=== PATIENT | female | born 1935 | race Caucasian/White ===

== ENCOUNTER → 2016-07-23 | Outpatient (CLI) | payer BC, OTHER ==
[~2016-07-23] MED LIST: BIOT1CAP8 PO; CHOL2000 PO; LOSA100T26 PO; MAGN400T6 PO; NAPR1TAB9 PO; OXYC-57 PO; TRAM-10 PO
[2016-07-23 09:43] LABS: BASO % 0.8 %; BASO ABS # 0.05 K/uL (0-0.2); COMPLETE YES; EOS % 3.2 %; HEMATOCRIT 36.5 % (37-47); LYMPH % 29.4 %; LYMPH ABS # 1.93 K/uL (1.2-3.4); MEAN CELL VOLUME 94.3 fL (80-100); MEAN CORPUSCULAR HEMOGLOBIN 32.6 pg (25-34); MEAN CORPUSCULAR HGB CONC 34.5 g/dl (32-36); MEAN PLATELET VOLUME 9.5 fL (7.4-10.4); MONO % 7.8 %; NEUT % 58.8 %; PLATELET COUNT 269 K/uL (130-400); RED BLOOD COUNT 3.87 M/uL (4.2-5.4); WHITE BLOOD COUNT 6.57 K/uL (4.8-10.8)
[2016-07-23 09:54] LABS: ESTIMATED AVERAGE GLUCOSE 108 mg/dl; HA1C FLAG Normal (Normal)
[2016-07-23 09:58] LABS: ALT/SGPT 18 U/L (12-78); BLOOD UREA NITROGEN 28 mg/dl (7-18); BUN/CREATININE RATIO 27.5 (10-20); CALCIUM 9.5 mg/dl (8.5-10.1); CARBON DIOXIDE 27 mmol/L (21-32); CHLORIDE 109 mmol/L (98-107); CHOLESTEROL 229 mg/dl (0-200); GLUCOSE 99 mg/dl (70-99); POTASSIUM 4.1 mmol/L (3.5-5.1); SODIUM 143 mmol/L (136-145); TRIGLYCERIDES 86 mg/dl (0-150); VERY LOW DENSITY LIPOPROT CALC 17 mg/dl
[2016-07-23 10:07] LABS: ALB/GLOB RATIO 1.2 (0.9-2); ALKALINE PHOSPHATASE 69 U/L (45-117); AST/SGOT 15 U/L (15-37); CHOLESTEROL/HDL RATIO 2.8; HDL CHOLESTEROL 83 mg/dl; LDL CHOLESTEROL CALCULATED 129 mg/dl; THYROID STIMULATING HORMONE 0.151 uIu/ml (0.300-4.500)
--- NOTE | 2016-07-28 13:06 | CODING QUERY MEDICAL NECESSITY ---
SUPPORTING DIAGNOSIS NEEDED A supporting diagnosis is required for the test/procedure performed on this patient in order for us to be reimbursed by the patient's insurance. Please provide a supporting diagnosis for the following test/procedure listed below next to the test name along with your signature. *If there is no additional diagnosis for this patient that would support the following test/procedure please document that below next to the test/procedure. Test(s)/Procedure(s) that require a supporting diagnosis: DOS 07/23 * Hba1c DIAGNOSIS: Provider Signature: Date: Thank you Katelyn Velásquez Health Information Management Once completed, please kindly fax back to [phone] For questions please call [phone]
== END | disposition home or self-care (01) ==
LOC: C.LAB 07:58
PROVIDERS: ATTEND Internal Medicine
DX: M41.30 Thoracogenic scoliosis, site unspecified (principal); E05.90 Thyrotoxicosis, unspecified without thyrotoxic crisis or storm; R73.01 Impaired fasting glucose

== ENCOUNTER → 2016-08-14 | Outpatient (CLI) | payer BC, OTHER ==
[~2016-08-14] MED LIST changes: +GADAVIST IV PRN; -LOSA100T26 PO; +LOSA100T33 PO
--- NOTE | 2016-08-15 15:34 | DIAGNOSTIC IMAGING REPORT ---
BRAIN COMBO FOR PITUITARY CLINICAL HISTORY: Abnormal TSH. Secondary hypothyroidism. COMPARISON STUDY: Head CT November 20, 2013. TECHNIQUE: Utilizing 1.5 Carmela magnet, multiplanar, multi echo imaging of the brain was performed pre and postcontrast administration with thin cut dynamic imaging through the pituitary gland. Injection of 4.8 cc of Gadavist IV was uneventful. FINDINGS: There are no areas of restricted diffusion. No acute intracranial hemorrhage, midline shift or mass effect is present. Ventricular system is normal for age. Basilar cisterns are patent. There are no extra-axial collections. Flow-voids for the major intracranial vessels are present. This exam is mildly, must by motion artifact although is diagnostic. Mild cerebral atrophy is noted. A few white matter T2 hyperintense foci suggest minimal small vessel disease. The infundibulum is midline. No definite pituitary lesion is identified. There is slight asymmetric fullness of the right aspect of the pituitary gland with a possible 5 mm hypoenhancing focus within the right aspect of the gland. IMPRESSION: 1. No acute intracranial findings. 2. No definite pituitary adenoma. Slight asymmetric fullness of the right aspect of the gland with an equivocal 5 mm microadenoma within the right aspect of the gland. Electronically signed by: Gilmar Avalos M.D. 08/15/2016 3:32 PM Dictated Date/Time: 08/14/2016 2:53 PM
== END | disposition home or self-care (01) ==
LOC: C.MRIBC 13:30
PROVIDERS: ATTEND Internal Medicine
DX: E03.8 Other specified hypothyroidism (principal)

== ENCOUNTER → 2016-08-20 | Outpatient (CLI) | payer BC, OTHER ==
[~2016-08-20] MED LIST changes: -GADAVIST IV PRN
== END | disposition home or self-care (01) ==
LOC: C.LAB 16:23
PROVIDERS: ATTEND Internal Medicine
DX: D35.2 Benign neoplasm of pituitary gland (principal)

== ENCOUNTER → 2017-01-01 | Outpatient (CLI) | payer BC, OTHER ==
[~2017-01-01] MED LIST changes: +LOSA100T26 PO; -LOSA100T33 PO
--- NOTE | 2017-01-01 12:00 | DIAGNOSTIC IMAGING REPORT ---
LEFT SHOULDER MIN 2 VIEWS ROUTINE CLINICAL HISTORY: Left upper arm pain COMPARISON: None. DISCUSSION: No fractures or dislocations are visualized. There are no erosive or destructive changes. The bones are mildly osteopenic. IMPRESSION: 1. No fractures identified 2. No erosive or destructive changes are visualized. Electronically signed by: Beto Rodriguez M.D. 01/01/2017 11:59 AM Dictated Date/Time: 01/01/2017 11:53 AM
== END | disposition home or self-care (01) ==
LOC: C.RAD1850 11:38
PROVIDERS: ATTEND Family Medicine
DX: M79.622 Pain in left upper arm (principal)

== ENCOUNTER → 2017-01-27 | Outpatient (CLI) | payer BC, OTHER ==
[2017-01-27 09:52] LABS: ALT/SGPT 22 U/L (12-78); AST/SGOT 15 U/L (15-37); BLOOD UREA NITROGEN 27 mg/dl (7-18); BUN/CREATININE RATIO 21.1 (10-20); CALCIUM 9.2 mg/dl (8.5-10.1); CARBON DIOXIDE 26 mmol/L (21-32); CHLORIDE 111 mmol/L (98-107); GLUCOSE 102 mg/dl (70-99); POTASSIUM 4.5 mmol/L (3.5-5.1); SODIUM 143 mmol/L (136-145)
[2017-01-27 10:04] LABS: ALB/GLOB RATIO 1.4 (0.9-2); ALKALINE PHOSPHATASE 64 U/L (45-117); CHOLESTEROL 241 mg/dl (0-200); CHOLESTEROL/HDL RATIO 2.5; HDL CHOLESTEROL 95 mg/dl; LDL CHOLESTEROL CALCULATED 121 mg/dl; THYROID STIMULATING HORMONE 0.347 uIu/ml (0.300-4.500); TRIGLYCERIDES 127 mg/dl (0-150); VERY LOW DENSITY LIPOPROT CALC 25 mg/dl
== END | disposition home or self-care (01) ==
LOC: C.LAB 08:36
PROVIDERS: ATTEND Internal Medicine
DX: E78.5 Hyperlipidemia, unspecified (principal)

== ENCOUNTER → 2017-02-17 | Outpatient (CLI) | payer BC, OTHER ==
[2017-02-17 12:42] LABS: BLOOD UREA NITROGEN 16 mg/dl (7-18); BUN/CREATININE RATIO 14.2 (10-20); CALCIUM 9.8 mg/dl (8.5-10.1); CARBON DIOXIDE 28 mmol/L (21-32); CHLORIDE 112 mmol/L (98-107); GLUCOSE 100 mg/dl (70-99); POTASSIUM 4.3 mmol/L (3.5-5.1); SODIUM 146 mmol/L (136-145)
== END | disposition home or self-care (01) ==
LOC: C.LAB 10:52
PROVIDERS: ATTEND Internal Medicine
DX: N28.9 Disorder of kidney and ureter, unspecified (principal)

== ENCOUNTER 2022-04-02 06:53 | Observation (INO) ==
--- NOTE | 2022-04-02 07:04 | Emergency Department Note ---
History of Present Illness General Chief complaint: Cardiac Assessment Stated complaint: L-ARM PAIN,PRESSURE??? IN CHEST Time Seen by Provider: 04/02/22 07:02 History of Present Illness This 86-year-old female patient presents to the emergency department with her daughter for evaluation of left arm pain and pressure in her chest. She states that she felt like she was having a heart attack when she woke up this morning at 5 am. She states that she had pain in her left arm, her arm felt "" and she had a pressure in her chest. She states that she took a 325 mg aspirin this morning around 6 am and now is feeling better. The symptoms lasted for about 30 min. She denies any pain or pressure currently. She will get occasional "jabs" in her chest on a routine basis, but they are very short lived. She states that she has had EKGs done before, but doesn't think that she's ever had an ECHO done and her last stress test was "years" ago. She does not have a history of heart problems and does not follow with a slat basket maker helper machine. Denies any family history of heart problems or MIs. She quit smoking about 50-60 years ago. She states that her left arm still feels slightly weird, but no pain or weakness. Denies any headache. Denies any change in her speech or change in her personality. No facial droop. Denies any abdominal pain, nausea or vomiting. Denies any cough, fever, or URI symptoms. Denies any recent injury or trauma. Home Medications Medication Instructions Recorded Confirmed Type biotin 1 mg capsule 1 mg PO QAM 01/18/18 04/02/22 History cholecalciferol (vitamin D3) 50 2,000 units PO QAM 01/18/18 04/02/22 History mcg (2,000 unit) capsule magnesium oxide 400 mg PO QPM 01/18/18 04/02/22 History cinnamon bark 500 mg capsule 2,000 mg PO DAILY 03/13/18 04/02/22 History (Cinnamon) alpha lipoic acid 200 mg capsule 1 cap PO DAILY 05/12/18 04/02/22 History coenzyme Q10 200 mg capsule (Co 200 mg PO DAILY 10/13/18 04/02/22 History Q-10) tramadol 50 mg tablet 50 mg PO Q8H PRN pain #90 tabs 10/02/20 04/02/22 Rx oxycodone 5 mg tablet 5 mg PO DIRECTED PRN Pain 10/22/21 04/02/22 History amlodipine 5 mg-valsartan 160 mg 1 tab PO DAILY #90 tabs 02/11/22 04/02/22 Rx tablet ropinirole 0.25 mg tablet 0.25 mg PO HS PRN parkinsonism #90 02/11/22 04/02/22 Rx tabs Allergies Allergy/AdvReac Type Severity Reaction Status Date / Time No Known Allergies Allergy Verified 03/11/22 13:06 Past Med/Surg History Medical History Degenerative disc disease GERD (gastroesophageal reflux disease) Hx of skin cancer, basal cell Hyperlipidemia Hypertension Hypothyroidism Lumbar radiculitis Osteoarthritis of knees, bilateral Osteoporosis Restless leg syndrome Scoliosis Spinal stenosis, 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 Urinary incontinence Vitamin D deficiency Surgical History H/O left cataract extraction 03/14/14/ H/O oral surgery H/O right cataract extraction 02/28/14 History of bunionectomy RIGHT History of colonoscopy History of herniorrhaphy INGUINAL HERNIA Family History Mother Family history of diabetes mellitus Daughter Family history of diabetes mellitus Brother Family history of diabetes mellitus Family/Other Family history of diabetes mellitus Father Lung cancer Denies family history of Ovarian cancer Prostate cancer Alzheimer disease Heart disease Myocardial infarction Breast cancer Colorectal cancer Hypertension Stroke Social History Smoking Status: Former smoker Age Quit Using Tobacco: 22; Second Hand Exposure: No; Hx Alcohol Use: Yes Alcohol type: wine Hx Substance Use: No Preferred Language: Dominican Communication Ability: Effective Visual Impairment: Limited Hearing Ability: Hard of Hearing Rim Fire Priming Operator Required: No Beliefs That Will Affect Care: Latter-Day Latter-Day Beliefs: YARSANISM marital status: / Current Living Situation: Family Current Living Situation Comment: daughter lives with patient current occupational status: retired How many Children do You have: 1 Feels Safe at Home: Yes Childhood Exposure to Second-Hand Smoke: Yes Dental Care, Regularly: No Physical Activity Frequency: 1-2 Times per Week Seatbelt Use: always Sunscreen Use: Yes Assistive Devices: Denture - Upper, Denture - Lower and Glasses Review of Systems See HPI for pertinent positives & negatives. and A total of 10 systems reviewed and were otherwise negative Physical Exam Vital Signs Vital Signs - 24 hr 04/02/22 06:59 04/02/22 07:17 04/02/22 07:17 Temperature 36.2 C L Temperature Source Temporal Artery Scan Pulse Rate 67 Pulse Rate from SpO2 Sensor Respiratory Rate 18 Blood Pressure 153/90 H Blood Pressure Mean 111 Pulse Oximetry 97 97 97 Oxygen Delivery Method Room Air Room Air Room Air Sepsis Recent Fever Within 48 Hours No Sepsis New/Unexplained Change in Mental Status No Sepsis Action Taken by Nursing No Action Required 04/02/22 07:17 04/02/22 07:27 04/02/22 07:40 Temperature Temperature Source Pulse Rate 93 H 115 H Pulse Rate from SpO2 Sensor 58 L Respiratory Rate 15 17 Blood Pressure Blood Pressure Mean Pulse Oximetry 97 98 Oxygen Delivery Method Room Air Sepsis Recent Fever Within 48 Hours Sepsis New/Unexplained Change in Mental Status Sepsis Action Taken by Nursing 04/02/22 07:40 04/02/22 08:00 04/02/22 08:00 Temperature Temperature Source Pulse Rate 54 L Pulse Rate from SpO2 Sensor 54 L Respiratory Rate 12 Blood Pressure 145/70 H 141/66 H Blood Pressure Mean 95 91 Pulse Oximetry 95 Oxygen Delivery Method Sepsis Recent Fever Within 48 Hours Sepsis New/Unexplained Change in Mental Status Sepsis Action Taken by Nursing 04/02/22 09:00 04/02/22 10:00 04/02/22 10:00 Temperature Temperature Source Pulse Rate 134 H 82 Pulse Rate from SpO2 Sensor 66 Respiratory Rate 20 17 Blood Pressure 126/74 Blood Pressure Mean 91 Pulse Oximetry 96 Oxygen Delivery Method Sepsis Recent Fever Within 48 Hours Sepsis New/Unexplained Change in Mental Status Sepsis Action Taken by Nursing 04/02/22 11:00 04/02/22 11:00 04/02/22 12:00 Temperature Temperature Source Pulse Rate 60 Pulse Rate from SpO2 Sensor 59 L Respiratory Rate 18 Blood Pressure 148/63 H 130/79 Blood Pressure Mean 91 96 Pulse Oximetry 95 Oxygen Delivery Method Sepsis Recent Fever Within 48 Hours Sepsis New/Unexplained Change in Mental Status Sepsis Action Taken by Nursing 04/02/22 12:00 04/02/22 13:00 04/02/22 13:00 Temperature Temperature Source Pulse Rate 80 73 Pulse Rate from SpO2 Sensor 60 Respiratory Rate 13 20 Blood Pressure 158/76 H Blood Pressure Mean 103 Pulse Oximetry 97 Oxygen Delivery Method Sepsis Recent Fever Within 48 Hours Sepsis New/Unexplained Change in Mental Status Sepsis Action Taken by Nursing 04/02/22 14:00 04/02/22 14:00 Temperature Temperature Source Pulse Rate 117 H Pulse Rate from SpO2 Sensor Respiratory Rate 19 Blood Pressure 134/72 Blood Pressure Mean 92 Pulse Oximetry Oxygen Delivery Method Sepsis Recent Fever Within 48 Hours Sepsis New/Unexplained Change in Mental Status Sepsis Action Taken by Nursing VITALS: Vitals are noted on the nurse's note and reviewed by myself. GENERAL: 86-year-old female, in no acute distress, non-diaphoretic, well- developed well-nourished. SKIN: Capillary refill <2 sec. No tenting of the skin. HEAD: Normocephalic, atraumatic. EARS: External auditory canals clear, tympanic membranes pearly vu without erythema or effusion bilaterally. EYES: PERRLA. EOMI. Conjunctivae without injection, sclerae without icterus. NOSE: Patent without discharge. MOUTH: Mucous membranes moist. Uvula midline. Airway patent. NECK: Supple without nuchal rigidity. HEART: Regular rate and rhythm with faint systolic murmur, but no gallops or rubs. LUNGS: Clear to auscultation bilaterally without wheezes, rales or rhonchi. No retractions or accessory muscle use. ABDOMEN: Positive bowel sounds x 4. Normal tympanic percussion. Soft, nontender, without masses or organomegaly. Monte sign negative. No guarding or rebound tenderness. No focal RLQ or LLQ tenderness. MUSCULOSKELETAL: Full range of motion of the left upper extremity without pain. No tenderness to palpation of the left upper extremity. Strength 5/5 and equal in the bilateral upper and lower extremities. No gross musculoskeletal defects. Peripheral pulses 2+. NEURO: Patient was alert and oriented to person place and time. Normal mental status exam. No facial droop. Normal speech. No focal neurological deficits. Course Administered Medications Discontinued Medications Sodium Chloride (Nss) 500 mls @ 125 mls/hr IV .Q4H STA Stop: 04/02/22 11:16 Last Infusion: 04/02/22 11:38 Dose: 0 mls/hr Documented By: Admin: 04/02/22 07:38 Dose: 125 mls/hr Documented By: SINA Pantoprazole Sodium (Pantoprazole 40 Mg Tab) 40 mg PO DAILY STA Stop: 04/02/22 12:39 Last Admin: 04/02/22 13:49 Dose: 40 mg Documented By: SINA Medical Decision Making Differential Diagnosis Differential diagnosis includes angina, TN, pericarditis, myocarditis, aortic dissection, pleurisy, pneumothorax, PE, pneumonia, pneumomediastinum, esophagitis, esophageal spasm, GERD, perforated esophagus, perforated duodenal/gastric ulcer, pancreatitis, cholecystitis, costochondritis, musculoskeletal, bronchitis, URI, or others. Laboratory Data Attestation: I reviewed the patient's lab results. Result diagrams: 04/02/22 07:23 04/02/22 07:23 Lab Results 04/02/22 04/02/22 04/02/22 Range/Units 07:23 07:23 07:23 WBC 4.86 (4.8-10.8) K/ul RBC 3.76 L (3.93-5.22) M/uL Hgb 12.1 (12.0-16.0) g/dl Hct 35.6 (34.1-44.9) % MCV 94.7 (80.0-100.0) fL MCH 32.2 (25.0-34.0) pg MCHC 34.0 (32.0-36.0) g/dL RDW Std Deviation 44.2 (36.4-46.3) fL RDW Coeff of Slime 12.8 (11.5-14.5) % Plt Count 203 (130-400) K/uL MPV 9.0 L (9.4-12.3) fL Immature Gran % (Auto) 0.4 % Neut % (Auto) 58.3 % Lymph % (Auto) 26.1 % Kimball % (Auto) 9.3 % Eos % (Auto) 4.9 % Baso % (Auto) 1.0 % Neut # (Auto) 2.83 (1.4-6.5) K/uL Lymph # (Auto) 1.27 (1.2-3.4) K/uL Kimball # (Auto) 0.45 (0.24-0.82) K/uL Eos # (Auto) 0.24 (0-0.50) K/uL Baso # (Auto) 0.05 (0-0.2) K/uL Immature Gran # (Auto) 0.02 (0.00-0.02) K/uL PT 10.9 (9.0-12.0) Seconds INR 1.0 (0.9-1.1) APTT 26.0 (21.0-31.0) Seconds PTT Ratio 0.9 Sodium 142 (136-145) mmol/L Potassium 3.9 (3.5-5.1) mmol/L Chloride 110 H (98-107) mmol/L Carbon Dioxide 26 (21-32) mmol/L Anion Gap 6 (3-11) BUN 20 (6-23) mg/dl Creatinine 0.99 (0.6-1.2) mg/dl Est Cr Clr Drug Dosing 24.6 ml/min Est GFR ( Amer) 59.0 ml/min Est GFR (Non-Af Amer) 50.9 ml/min BUN/Creatinine Ratio 20.2 H (10-20) Glucose 98 (70-99(Fasting)) mg/dl Calcium 9.7 (8.5-10.1) mg/dl Total Bilirubin 0.9 (0.2-1.0) mg/dl AST 16 (13-39) U/L ALT 10 (7-52) U/L Alkaline Phosphatase 51 (34-104) U/L Troponin I High Sens 11.4 D (0-14) pg/ml Total Protein 6.0 (6.0-8.3) gm/dl Albumin 3.8 (3.4-5.0) gm/dl Globulin 2.2 L (2.5-4.0) gm/dl Albumin/Globulin Ratio 1.7 (0.9-2) Lipase 34 (11-82) U/L TSH (0.300-4.500) uIu/ml Urine Color Urine Appearance (Clear) Urine pH (4.5-7.5) Ur Specific [place] (1.000-1.030) Urine Protein (Negative) Urine Glucose (UA) (Negative) Urine Ketones (Negative) Urine Blood (Negative) Urine Nitrite (Negative) Urine Bilirubin (Negative) Urine Urobilinogen (Negative) Ur Leukocyte Esterase (Negative) Urine WBC (Auto) (0-5) /hpf Urine RBC (Auto) (0-4) /hpf U Hyaline Cast (Auto) (0-5) /lpf U Epithel Cells (Auto) (0-5) /lpf Urine Bacteria (Auto) (Negative) SARS-CoV-2, RNA, NAAT (NEGATIVE) 04/02/22 04/02/22 04/02/22 Range/Units 07:23 09:27 12:20 WBC (4.8-10.8) K/ul RBC (3.93-5.22) M/uL Hgb (12.0-16.0) g/dl Hct (34.1-44.9) % MCV (80.0-100.0) fL MCH (25.0-34.0) pg MCHC (32.0-36.0) g/dL RDW Std Deviation (36.4-46.3) fL RDW Coeff of Slime (11.5-14.5) % Plt Count (130-400) K/uL MPV (9.4-12.3) fL Immature Gran % (Auto) % Neut % (Auto) % Lymph % (Auto) % Kimball % (Auto) % Eos % (Auto) % Baso % (Auto) % Neut # (Auto) (1.4-6.5) K/uL Lymph # (Auto) (1.2-3.4) K/uL Kimball # (Auto) (0.24-0.82) K/uL Eos # (Auto) (0-0.50) K/uL Baso # (Auto) (0-0.2) K/uL Immature Gran # (Auto) (0.00-0.02) K/uL PT (9.0-12.0) Seconds INR (0.9-1.1) APTT (21.0-31.0) Seconds PTT Ratio Sodium (136-145) mmol/L Potassium (3.5-5.1) mmol/L Chloride (98-107) mmol/L Carbon Dioxide (21-32) mmol/L Anion Gap (3-11) BUN (6-23) mg/dl Creatinine (0.6-1.2) mg/dl Est Cr Clr Drug Dosing ml/min Est GFR ( Amer) ml/min Est GFR (Non-Af Amer) ml/min BUN/Creatinine Ratio (10-20) Glucose (70-99(Fasting)) mg/dl Calcium (8.5-10.1) mg/dl Total Bilirubin (0.2-1.0) mg/dl AST (13-39) U/L ALT (7-52) U/L Alkaline Phosphatase (34-104) U/L Troponin I High Sens 11.2 17.9 H D (0-14) pg/ml Total Protein (6.0-8.3) gm/dl Albumin (3.4-5.0) gm/dl Globulin (2.5-4.0) gm/dl Albumin/Globulin Ratio (0.9-2) Lipase (11-82) U/L TSH (0.300-4.500) uIu/ml Urine Color Urine Appearance (Clear) Urine pH (4.5-7.5) Ur Specific [place] (1.000-1.030) Urine Protein (Negative) Urine Glucose (UA) (Negative) Urine Ketones (Negative) Urine Blood (Negative) Urine Nitrite (Negative) Urine Bilirubin (Negative) Urine Urobilinogen (Negative) Ur Leukocyte Esterase (Negative) Urine WBC (Auto) (0-5) /hpf Urine RBC (Auto) (0-4) /hpf U Hyaline Cast (Auto) (0-5) /lpf U Epithel Cells (Auto) (0-5) /lpf Urine Bacteria (Auto) (Negative) SARS-CoV-2, RNA, NAAT NEGATIVE (NEGATIVE) 04/02/22 04/02/22 04/02/22 Range/Units 15:41 15:41 Unknown WBC (4.8-10.8) K/ul RBC (3.93-5.22) M/uL Hgb (12.0-16.0) g/dl Hct (34.1-44.9) % MCV (80.0-100.0) fL MCH (25.0-34.0) pg MCHC (32.0-36.0) g/dL RDW Std Deviation (36.4-46.3) fL RDW Coeff of Slime (11.5-14.5) % Plt Count (130-400) K/uL MPV (9.4-12.3) fL Immature Gran % (Auto) % Neut % (Auto) % Lymph % (Auto) % Kimball % (Auto) % Eos % (Auto) % Baso % (Auto) % Neut # (Auto) (1.4-6.5) K/uL Lymph # (Auto) (1.2-3.4) K/uL Kimball # (Auto) (0.24-0.82) K/uL Eos # (Auto) (0-0.50) K/uL Baso # (Auto) (0-0.2) K/uL Immature Gran # (Auto) (0.00-0.02) K/uL PT (9.0-12.0) Seconds INR (0.9-1.1) APTT (21.0-31.0) Seconds PTT Ratio Sodium (136-145) mmol/L Potassium (3.5-5.1) mmol/L Chloride (98-107) mmol/L Carbon Dioxide (21-32) mmol/L Anion Gap (3-11) BUN (6-23) mg/dl Creatinine (0.6-1.2) mg/dl Est Cr Clr Drug Dosing ml/min Est GFR ( Amer) ml/min Est GFR (Non-Af Amer) ml/min BUN/Creatinine Ratio (10-20) Glucose (70-99(Fasting)) mg/dl Calcium (8.5-10.1) mg/dl Total Bilirubin (0.2-1.0) mg/dl AST (13-39) U/L ALT (7-52) U/L Alkaline Phosphatase (34-104) U/L Troponin I High Sens 39.5 H D (0-14) pg/ml Total Protein (6.0-8.3) gm/dl Albumin (3.4-5.0) gm/dl Globulin (2.5-4.0) gm/dl Albumin/Globulin Ratio (0.9-2) Lipase (11-82) U/L TSH 0.240 L (0.300-4.500) uIu/ml Urine Color Dark Yellow Urine Appearance Clear (Clear) Urine pH 5.0 (4.5-7.5) Ur Specific [place] 1.023 (1.000-1.030) Urine Protein Negative (Negative) Urine Glucose (UA) Negative (Negative) Urine Ketones Trace H (Negative) Urine Blood Negative (Negative) Urine Nitrite Negative (Negative) Urine Bilirubin Negative (Negative) Urine Urobilinogen Negative (Negative) Ur Leukocyte Esterase 1+ H (Negative) Urine WBC (Auto) 5-10 H (0-5) /hpf Urine RBC (Auto) 0-4 (0-4) /hpf U Hyaline Cast (Auto) 1-5 (0-5) /lpf U Epithel Cells (Auto) 10-20 H (0-5) /lpf Urine Bacteria (Auto) Negative (Negative) SARS-CoV-2, RNA, NAAT (NEGATIVE) Imaging Data Radiologist's Impression: Chest X-Ray 04/02/22 07:17 XR chest 1V portable CLINICAL HISTORY: Atypical chest pain. COMPARISON STUDY: Chest CT January 21, 2022. FINDINGS: [Lumbar spine scoliosis is incidentally noted. Skin folds project over the right chest. Lung volumes are normal. Lungs are clear. There is no pneumothorax or pleural effusion. Cardiac size is normal. Mediastinal contours are normal. There is no evidence for pulmonary edema. IMPRESSION: No acute cardiopulmonary findings. ACT 112: Negative or not required by law. Electronically signed by: Gimlar Avalos M.D. 04/02/2022 7:39 AM MDM Narrative I examined the patient. An IV lock was placed and labs were drawn. The patient was hydrated with normal saline solution at 125 mL/h. The patient stated that her pain had resolved although the left arm still felt weird at times. She declined any medication for pain while in the emergency department. EKG was interpreted by myself and Dr. Messer and showed sinus rhythm at 60 bpm with occasional PVCs as well as a right bundle branch block and a possible bifascicular block with age undetermined possible lateral infarct, but no acute ST or T wave changes. CBC essentially normal. Coags normal. CMP essentially normal. Lipase normal. Urine does not appear to be consistent with a UTI. COVID was negative. Initial high-sensitivity troponin was normal at 11.2, but her 2-hour repeat high-sensitivity troponin became slightly elevated at 17.9. The patient was independently evaluated by Dr. Messer, who agreed with my a ssessment and treatment plan. The patient has not had a recent cardiac work-up and does not follow-up with cardiology. She denies previous history of cardiac abnormalities and denies any significant family history. However, her high- sensitivity troponin has increased during her stay and we will admit her for further cardiac evaluation. I spoke with the on-call hospitalist who agreed to admit the patient for further evaluation and treatment. The patient's care was transferred to the hospitalist in stable condition. Impression & Plan Chest pain, Elevated troponin Discharge Plan Visit Data Chief Complaint: Cardiac Assessment Stated Complaint: L-ARM PAIN,PRESSURE??? IN CHEST ED Provider: Alyce Messer ED Midlevel Provider: Monique Haywood Discharge Problem: Chest pain, Elevated troponin Patient Disposition: Admitted As Inpatient Condition: Good Forms Stand Alone Forms: My [facility] Prescriptions Prescriptions: No Action tramadol 50 mg tablet 50 mg PO Q8H PRN (Reason: pain) Qty: 90 0RF cholecalciferol (vitamin D3) 2,000 unit capsule 2,000 units PO QAM magnesium oxide 400 mg capsule 400 mg PO QPM biotin 1 mg capsule 1 mg PO QAM amlodipine-valsartan 5-160 mg tablet 1 tab PO DAILY Qty: 90 3RF ropinirole 0.25 mg tablet 0.25 mg PO HS PRN (Reason: parkinsonism) Qty: 90 3RF cinnamon bark [Cinnamon] 500 mg Capsule 2,000 mg PO DAILY coenzyme Q10 [Co Q-10] 200 mg capsule 200 mg PO DAILY alpha lipoic acid 200 mg Capsule 1 cap PO DAILY oxycodone 5 mg Tablet 5 mg PO DIRECTED PRN (Reason: Pain) Referrals Referrals: Tomi Newby MD [Primary Care Provider] -
[2022-04-02] MEDS ORDERED: SODIUM CHLORIDE 0.9% 500 ML IV STA (07:17)
[2022-04-02 07:37] LABS: Basophils # (auto) 0.05 K/uL (0-0.2); Eosinophils # (auto) 0.24 K/uL (0-0.50); Eosinophils % (auto) 4.9 %; Hematocrit (blood only) 35.6 % (34.1-44.9); Hemoglobin 12.1 g/dl (12.0-16.0); Immature Granulocytes # (auto) 0.02 K/uL (0.00-0.02); Immature Granulocytes % (auto) 0.4 %; Lymphocytes # (auto) 1.27 K/uL (1.2-3.4); Lymphocytes % (auto) 26.1 %; Mean Corpuscular Hemoglobin 32.2 pg (25.0-34.0); Mean Corpuscular Volume 94.7 fL (80.0-100.0); Monocytes # (auto) 0.45 K/uL (0.24-0.82); Monocytes % (auto) 9.3 %; Neutrophils # (auto) 2.83 K/uL (1.4-6.5); Neutrophils % (auto) 58.3 %; Platelet Count 203 K/uL (130-400); RDW Coefficient of Variation 12.8 % (11.5-14.5); RDW Standard Deviation 44.2 fL (36.4-46.3); Red Blood Count 3.76 M/uL (3.93-5.22); White Blood Count 4.86 K/ul (4.8-10.8)
--- NOTE | 2022-04-02 07:40 | XRay Report ---
XR chest 1V portable CLINICAL HISTORY: Atypical chest pain. COMPARISON STUDY: Chest CT January 21, 2022. FINDINGS: [Lumbar spine scoliosis is incidentally noted. Skin folds project over the right chest. Alvarez g volumes are normal. Lungs are clear. There is no pneumothorax or pleural effusion. Cardiac size is normal. Mediastinal contours are normal. There is no evidence for pulmonary edema. IMPRESSION: No acute cardiopulmonary findings. ACT 112: Negative or not required by law. Electronically signed by: Gilmar Avalos M.D. 04/02/2022 7:39 AM
[2022-04-02 07:56] LABS: Partial Thromboplastin Ratio 0.9; Prothrombin Time 10.9 Seconds (9.0-12.0)
[2022-04-02 08:00] LABS: Albumin Globulin Ratio 1.7 (0.9-2); Albumin Level 3.8 gm/dl (3.4-5.0); BUN Creatinine Ratio 20.2 (10-20); Bilirubin,Total 0.9 mg/dl (0.2-1.0); Calcium 9.7 mg/dl (8.5-10.1); Creatinine Clr Calc Pharmacy 24.6 ml/min; Est GFR (Non-African American) 50.9 ml/min; Globulin 2.2 gm/dl (2.5-4.0); Potassium 3.9 mmol/L (3.5-5.1)
[2022-04-02 08:04] LABS: Troponin I High Sensitivity 11.4 pg/ml (0-14)
[2022-04-02 09:32] LABS: Appearance Urine Clear (Clear); Bacteria Urine Automated Negative (Negative); Bilirubin Urine Negative (Negative); Blood Urine Negative (Negative); Color Urine Dark Yellow; Glucose Urine UA Negative (Negative); Ketones Urine Trace (Negative); Leukocyte Esterase Urine 1+ (Negative); Nitrite Urine Negative (Negative); Protein Urine Negative (Negative); RBC Urine Automated 0-4 /hpf (0-4); Specific Gravity Urine 1.023 (1.000-1.030); Urobilinogen Urine Negative (Negative)
--- NOTE | 2022-04-02 12:05 | History & Physical Report ---
Date of Service April 02, 2022 Assessment & Plan (1) Chest pain: Plan: -Admit to med/tele -Patient is currently afebrile, hemodynamically stable, and stable on RA -Chest discomfort lasted for about 30 min prior to arrival to the ED and was relieved with 324 mg of Aspirin -Initial high sensitivity trop was WNL at 11, 2 hour repeat was noted to be 17 -ECG's obtained in the ED today are showing a possible bifascicular block with age undetermined possible lateral infarct, upon evaluation of her last ECG on 10/22/[address] similar ST segment depressions in the lateral leads -Monitor on tele and pulse oximetry -07/06 systolic murmur noted on exam today, patient denies a previous history of heart murmurs, TTE ordered -Will trend her troponin until it begins to trend down -If any other concerning findings would recommending consulting cardiology -AM CBC and BMP -BL SCDs and Lovenox for DVT PPX (2) Restless leg syndrome: Plan: -Continue ropinirole (3) Spinal stenosis, lumbar region with neurogenic claudication: Plan: -Continue prn tramadol (4) Hyperlipidemia: Plan: -Not currently on a statin, was on alpha lipoic acid prior to running out and not having it refilled yet -Will get fasting lipid panel on am labs tomorrow for further evaluation (5) GERD (gastroesophageal reflux disease): Plan: -Pantoprazole while admitted (6) Hypothyroidism: Plan: -Patient is not on levothyroxine -Will get TSH with free T4 if needed for further evaluation (7) Vitamin D deficiency: Plan: -Continue vitamin D (8) Hypertension: Plan: -Hemodynamically stable -Continue amlodipine-valsartan Plan The patient was discussed with Dr. Mata at the time of the admission History of Present Illness Chief Complaint: Chest pressure, left arm pain Primary Care Provider: Tomi Newby MD [place] is an 86 year old female with a PMH significant for hyperlipidemia, GERD, OA, CKD stage III, hypothyroidism, spinal stenosis, restless leg syndrome, who presented to the [facility] ED on 04/03/22 with a chief complaint of chest pain with associated left arm pain. In the ED the patient was found to be afebrile, hemodynamically stable, and stable on RA. Labs were remarkable for CBC WNL, stable renal function and electrolytes, stable liver function, lipase of 34, and UA not indicative of acute infection, her initial high sensitivity troponin was 11.2 and increased to 17.9 on 2 hour repeat. Chest xray was negative for acute changes. Her ECG's showed NSR with possible bifascicular block and age undetermined lateral infarct. Prior to admission the patient was given 1L NSS bolus. At the time of the exam the patient was resting comfortably in bed in no acute distress with her Daughter sitting bedside, history was obtained from both. The patient states that she has been in her normal state of health without recent issues when she woke up a little before her alarm set for 5 am today. After waking and moving in bed she noticed some discomfort/pressure in her left chest and left arm. She does not describe the sensation as painful but more as a light pressure, of which she has never had previously. She denies fever, chills , SOB, cough, diaphoresis, abdominal pain, nausea, vomiting, diarrhea, dysuria, hematuria, and recent falls/trauma. Due to the discomfort she took 324 mg of PO aspirin which quickly relieved her pain. She states that she contemplated not coming to the ED due to the discomfort being minor and resolving but she wanted to be safe. She denies a history of previous cardiac disease and has not had to see a middle school teacher in the past. Per chart review, she had a dobutamine stress echo back in 2011 which was found to be normal. She is a very active person and does lots of housework throughout the day, she also climbs multiple sets of steps daily. When asked, she denies chest discomfort/pain or SOB with her daily activity or climbing stairs. I spoke to she and her daughter regarding code status. She would like to be a full code and her daughter would make decisions for her if she could not make them herself. When asked after I examined her, she does not recall being told she has a heart murmur in the past. Please refer to Dr. Mata's attestation for any changes to the treatment plan Allergies Allergy/AdvReac Type Severity Reaction Status Date / Time No Known Allergies Allergy Verified 03/11/22 13:06 Home Medications Medication Instructions Recorded Confirmed Type biotin 1 mg capsule 1 mg PO QAM 01/18/18 04/02/22 History cholecalciferol (vitamin D3) 50 2,000 units PO QAM 01/18/18 04/02/22 History mcg (2,000 unit) capsule magnesium oxide 400 mg PO QPM 01/18/18 04/02/22 History cinnamon bark 500 mg capsule 2,000 mg PO DAILY 03/13/18 04/02/22 History (Cinnamon) alpha lipoic acid 200 mg capsule 1 cap PO DAILY 05/12/18 04/02/22 History coenzyme Q10 200 mg capsule (Co 200 mg PO DAILY 10/13/18 04/02/22 History Q-10) tramadol 50 mg tablet 50 mg PO Q8H PRN pain #90 tabs 10/02/20 04/02/22 Rx oxycodone 5 mg tablet 5 mg PO DIRECTED PRN Pain 10/22/21 04/02/22 History amlodipine 5 mg-valsartan 160 mg 1 tab PO DAILY #90 tabs 02/11/22 04/02/22 Rx tablet ropinirole 0.25 mg tablet 0.25 mg PO HS PRN parkinsonism #90 02/11/22 04/02/22 Rx tabs Past Med/Surg History Medical History Degenerative disc disease GERD (gastroesophageal reflux disease) Hx of skin cancer, basal cell Hyperlipidemia Hypertension Hypothyroidism Lumbar radiculitis Osteoarthritis of knees, bilateral Osteoporosis Restless leg syndrome Scoliosis Spinal stenosis, 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 Urinary incontinence Vitamin D deficiency Surgical History H/O left cataract extraction 03/14/14/ H/O oral surgery H/O right cataract extraction 02/28/14 History of bunionectomy RIGHT History of colonoscopy History of herniorrhaphy INGUINAL HERNIA Family History Mother Family history of diabetes mellitus Daughter Family history of diabetes mellitus Brother Family history of diabetes mellitus Family/Other Family history of diabetes mellitus Father Lung cancer Denies family history of Ovarian cancer Prostate cancer Alzheimer disease Heart disease Myocardial infarction Breast cancer Colorectal cancer Hypertension Stroke Social History Smoking Status: Former smoker Age Quit Using Tobacco: 22; Second Hand Exposure: No; Hx Alcohol Use: Yes Alcohol type: wine Hx Substance Use: No Preferred Language: Lithuanian Communication Ability: Effective Visual Impairment: Limited Hearing Ability: Hard of Hearing Software Engineer Web Services Required: No Beliefs That Will Affect Care: Buddhism Buddhism Beliefs: ADVENTIST marital status: / Current Living Situation: Family Current Living Situation Comment: daughter lives with patient current occupational status: retired How many Children do You have: 1 Feels Safe at Home: Yes Childhood Exposure to Second-Hand Smoke: Yes Dental Care, Regularly: No Physical Activity Frequency: 1-2 Times per Week Seatbelt Use: always Sunscreen Use: Yes Assistive Devices: Denture - Upper, Denture - Lower and Glasses Review of Systems Review of Systems: Denies current fever, chills, headache, changes in vision, hearing, taste, and smell, chest pain, SOB, cough, abdominal pain, nausea, vomiting, diarrhea, hematemesis, melena, dysuria, hematuria, and recent falls. All systems have been reviewed and are otherwise negative. Physical Exam Physical Exam: Physical Exam: General: In no acute distress, stated age, well-nourished, good hygiene HEENT: Normocephalic, atraumatic, no scleral icterus, pupils around round, symmetrical, and reactive to light, moist mucus membranes, trachea midline, no thyromegaly Chest/Pulm: No respiratory distress, symmetrical chest expansion, clear breath sounds throughout Cardiac: No reproducible chest pain upon palpation of the chest, RRR, 3/6 systolic murmur noted Abdomen: Negative for ascites and bruising, normoactive bowel sounds, soft, n on-tender to palpation throughout Musculoskeletal: Symmetrical and without signs of acute trauma, upper and lower extremities with full ROM, no atrophy, spasticity, or flaccidity Extremities: Radial, dorsalis pedis, and posterior tibial pulses are intact and symmetrical, no edema noted in the BL LE's Skin: Warm, dry, no rashes , lesions, or scars noted Neuro: Alert and oriented to person, place, month, year, and president, no focal defects, CN II-XII tested and intact, finger to nose test negative, no tremors noted Psych: No acute distress, calm and cooperative during the exam Results & Data Results & Data ([facility]) Vital Signs (Past 12 Hours) Vital Signs Temp Pulse Resp BP Pulse Ox O2 Del Method 04/02/22 11:00 60 18 95 04/02/22 11:00 148/63 H 04/02/22 10:00 82 17 96 04/02/22 10:00 126/74 04/02/22 09:00 134 H 20 04/02/22 08:00 54 L 12 95 04/02/22 08:00 141/66 H 04/02/22 07:40 145/70 H 04/02/22 07:40 115 H 17 04/02/22 07:27 93 H 15 98 04/02/22 07:17 97 Room Air 04/02/22 07:17 97 Room Air 04/02/22 07:17 97 Room Air 04/02/22 06:59 36.2 C L 67 18 153/90 H 97 Room Air Laboratory Results Abnormal lab results 04/02/22 04/02/22 04/02/22 Range/Units 07:23 07:23 09:27 RBC 3.76 L (3.93-5.22) M/uL MPV 9.0 L (9.4-12.3) fL Chloride 110 H (98-107) mmol/L BUN/Creatinine Ratio 20.2 H (10-20) Troponin I High Sens 17.9 H D (0-14) pg/ml Globulin 2.2 L (2.5-4.0) gm/dl Urine Ketones (Negative) Ur Leukocyte Esterase (Negative) Urine WBC (Auto) (0-5) /hpf U Epithel Cells (Auto) (0-5) /lpf 04/02/22 Range/Units Unknown RBC (3.93-5.22) M/uL MPV (9.4-12.3) fL Chloride (98-107) mmol/L BUN/Creatinine Ratio (10-20) Troponin I High Sens (0-14) pg/ml Globulin (2.5-4.0) gm/dl Urine Ketones Trace H (Negative) Ur Leukocyte Esterase 1+ H (Negative) Urine WBC (Auto) 5-10 H (0-5) /hpf U Epithel Cells (Auto) 10-20 H (0-5) /lpf Diagnostic Findings Chest X-Ray 04/02/22 07:17 XR chest 1V portable CLINICAL HISTORY: Atypical chest pain. COMPARISON STUDY: Chest CT January 21, 2022. FINDINGS: [Lumbar spine scoliosis is incidentally noted. Skin folds project over the right chest. Lung volumes are normal. Lungs are clear. There is no pneumothorax or pleural effusion. Cardiac size is normal. Mediastinal contours are normal. There is no evidence for pulmonary edema. IMPRESSION: No acute cardiopulmonary findings. ACT 112: Negative or not required by law. Electronically signed by: Gilmar Avalos M.D. 04/02/2022 7:39 AM ECG Additional Comments: Normal sinus rhythm Low voltage QRS Right bundle branch block Left anterior fascicular block Bifascicular block Possible Lateral infarct , age undetermined Abnormal ECG When compared with ECG of 02-APR-2022 07:24, (unconfirmed) No significant change was found Code Status & VTE Plan Code Status Full code VTE Prophylaxis Plan VTE Prophylaxis will be ordered: Yes Supervising Physician Co-Signing Physician Notes Patient was seen and examined independently I discussed the case with Robel WILLARD I reviewed pertinent past medical social family history and also the plan of care and agree with the plan of care. Patient presented with chest discomfort which is unusual for her with some associated symptoms. Initial evaluation shows a very minor elevation of high- sensitivity troponin no acute changes on her EKG. She has a very faint new systolic murmur which is not something she remembers being told otherwise she is not in heart failure Patient will be evaluated with serial troponins echocardiogram to evaluate both for regional wall motion abnormalities and valvular heart disease Examination she awake alert appropriate she has no complaints currently her card exam is regular with a systolic murmur heard best at the left upper sternal border our lungs are clear with good auscultation no focal air loss she has no JVD extremities are without edema Any exceptions will be noted below PG Care Time/CCT Total # of Minutes Spent Total Time Spent with Patient: Total time spent is greater than 50% in coordination of care (as documented) at patient's floor/unit and/or counseling patient: Coding Level of Care Code Established Pt INT OBSERVATION CARE 50M LVL 2 Patient Type Established Medical Decision Making Moderate Complexity Diagnoses Chest pain R07.9 Restless leg syndrome G25.81 Spinal stenosis, lumbar region with neurogenic claudication M48.062 Hyperlipidemia E78.5 GERD (gastroesophageal reflux disease) K21.9 Hypothyroidism E03.9 Vitamin D deficiency E55.9 Hypertension I10 Hypertension type: essential hypertension (1) Hypertension Hypertension type: essential hypertension Qualified Code(s): I10 - Essential (primary) hypertension
--- NOTE | 2022-04-02 12:23 | Emergency Department Note ---
ED Visit Note I was consulted by the Advanced Practice Provider. I saw the patient personally and performed a substantive portion of the visit. This includes aspects of the HPI, MDM, diagnostic interpretations, and disposition/plan. .
[2022-04-02] MEDS ORDERED: PANTOprazole 40 MG TAB PO STA (12:38)
[2022-04-02 16:27] LABS: Thyroid Stimulating Hormone 0.24 uIu/ml (0.300-4.500)
[2022-04-02 17:06] LABS: T4 Free Thyroxine 0.85 ng/dl (0.61-1.60)
[2022-04-02] MEDS ORDERED: traMADol HCL 50 MG TABLET PO PRN (17:35)
[2022-04-02] MEDS ORDERED: rOPINIRole HCL 0.25 MG TABLET PO PRN (17:35)
[2022-04-02] MEDS ORDERED: ACETAMINOPHEN 325 MG TAB PO PRN (17:35)
[2022-04-02] MEDS: amLODIPine BESYLATE 5 MG TAB PO SCH (18:33)
[2022-04-02] MEDS: VALSARTAN 80 MG TAB PO SCH (18:34)
--- NOTE | 2022-04-02 18:48 | XCELERA ---
[id number]
--- NOTE | 2022-04-02 20:52 | Electrocardiogram Report ---
Test Reason : Blood Pressure : / mmHG Vent. Rate : 059 BPM Atrial Rate : 059 BPM P-R Int : 134 ms QRS Dur : 118 ms QT Int : 442 ms P-R-T Axes : 061 -52 040 degrees QTc Int : 437 ms Sinus bradycardia Right bundle branch block Left anterior fascicular block Bifascicular block Abnormal ECG When compared with ECG of 02-APR-2022 07:07, (unconfirmed) Premature ventricular complexes are no longer Present Confirmed by Andrew Molina ([id number]) on 04/02/2022 8:52:02 PM Referred By: REFERRED SELF Confirmed By:Cuate Molina
--- NOTE | 2022-04-02 20:53 | Electrocardiogram Report ---
Test Reason : Blood Pressure : / mmHG Vent. Rate : 068 BPM Atrial Rate : 068 BPM P-R Int : 134 ms QRS Dur : 116 ms QT Int : 424 ms P-R-T Axes : 067 -56 052 degrees QTc Int : 450 ms Sinus rhythm with occasional Premature ventricular complexes Low voltage QRS Right bundle branch block Left anterior fascicular block Bifascicular block Abnormal ECG Confirmed by Andrew Molina ([id number]) on 04/02/2022 8:53:02 PM Referred By: Confirmed By:Cuate Molina
--- NOTE | 2022-04-02 20:58 | Electrocardiogram Report ---
Test Reason : Blood Pressure : / mmHG Vent. Rate : 060 BPM Atrial Rate : 060 BPM P-R Int : 152 ms QRS Dur : 114 ms QT Int : 430 ms P-R-T Axes : 070 -59 042 degrees QTc Int : 430 ms Normal sinus rhythm Low voltage QRS Right bundle branch block Left anterior fascicular block Bifascicular block Abnormal ECG When compared with ECG of 02-APR-2022 07:24, (unconfirmed) No significant change was found Confirmed by Andrew Molina ([id number]) on 04/02/2022 8:58:01 PM Referred By: REFERRED SELF Confirmed By:Cuate Molina
[2022-04-02] MEDS ORDERED: MAGNESIUM OXIDE 400 MG TAB PO SCH (21:00)
[2022-04-02] MEDS: ENOXAPARIN INJ 30 MG/0.3 ML SYR SQ SCH (22:12)
[2022-04-03] MEDS: ENOXAPARIN INJ 30 MG/0.3 ML SYR SQ SCH (02:29)
[2022-04-03 05:08] LABS: Hematocrit (blood only) 33.2 % (34.1-44.9); Hemoglobin 11.2 g/dl (12.0-16.0); Mean Corpuscular Hemoglobin 32.4 pg (25.0-34.0); Mean Corpuscular Hgb Conc 33.7 g/dL (32.0-36.0); Mean Platelet Volume 9.1 fL (9.4-12.3); Platelet Count 198 K/uL (130-400); RDW Coefficient of Variation 12.8 % (11.5-14.5); RDW Standard Deviation 45.1 fL (36.4-46.3); Red Blood Count 3.46 M/uL (3.93-5.22); White Blood Count 5.49 K/ul (4.8-10.8)
[2022-04-03 05:30] LABS: BUN Creatinine Ratio 16.9 (10-20); Calcium 9.3 mg/dl (8.5-10.1); Chol HDL Ratio 2.3 (0-5); Creatinine Clr Calc Pharmacy 20.6 ml/min; Est GFR (African American) 47.7 ml/min; Est GFR (Non-African American) 41.1 ml/min; Potassium 4.1 mmol/L (3.5-5.1)
[2022-04-03 07:22] LABS: Estimated Average Glucose 111 mg/dl; Hemoglobin A1C 5.5 % (4.5-5.6)
--- NOTE | 2022-04-03 08:11 | Hospitalist Progress Note ---
Date of Service April 03, 2022 Assessment & Plan Admission and Anticipated Discharge Date Admission Date: April 02, 2022 Results & Data Results & Data ([facility]) Vital Signs (Past 12 Hours) Vital Signs Pulse Pulse Resp BP BP Pulse Ox O2 Del Method 04/03/22 06:09 72 20 136/73 98 04/03/22 02:52 77 17 134/77 94 Room Air 04/03/22 02:30 63 16 98 Room Air 04/03/22 02:00 61 24 04/03/22 01:30 70 14 04/03/22 01:00 60 22 04/03/22 00:30 61 25 H 04/03/22 00:00 57 L 22 04/02/22 23:00 73 22 04/02/22 22:30 60 13 04/02/22 22:11 105 H 25 H 04/02/22 21:30 113 H 23 04/02/22 21:00 124 H 21 04/02/22 21:00 124/70 04/02/22 20:30 100 H 22 PG Care Time/CCT Total # of Minutes Spent Total Time Spent with Patient: Total time spent is greater than 50% in coordination of care (as documented) at patient's floor/unit and/or counseling patient: Coding
[2022-04-03] MEDS: amLODIPine BESYLATE 5 MG TAB PO SCH (08:32)
[2022-04-03] MEDS: VALSARTAN 80 MG TAB PO SCH (08:34)
[2022-04-03 08:45] LABS: Magnesium 1.8 mg/dl (1.7-2.4)
[2022-04-03] MEDS ORDERED: CHOLECALCIFEROL 1,000 UNITS 25 MCG TAB PO SCH (09:00)
--- NOTE | 2022-04-03 12:38 | Discharge Summary ---
Date of Service April 03, 2022 Admission HPI Per Admitting Provider Alka is an 86 year old female with a PMH significant for hyperlipidemia, GERD, OA, CKD stage III, hypothyroidism, spinal stenosis, restless leg syndrome, who presented to the [facility] ED on 04/03/22 with a chief complaint of chest pain with associated left arm pain. In the ED the patient was found to be afebrile, hemodynamically stable, and stable on RA. Labs were remarkable for CBC WNL, stable renal function and el ectrolytes, stable liver function, lipase of 34, and UA not indicative of acute infection, her initial high sensitivity troponin was 11.2 and increased to 17.9 on 2 hour repeat. Chest xray was negative for acute changes. Her ECG's showed NSR with possible bifascicular block and age undetermined lateral infarct. Prior to admission the patient was given 1L NSS bolus. At the time of the exam the patient was resting comfortably in bed in no acute distress with her Daughter sitting bedside, history was obtained from both. The patient states that she has been in her normal state of health without recent issues when she woke up a little before her alarm set for 5 am today. After waking and moving in bed she noticed some discomfort/pressure in her left chest and left arm. She does not describe the sensation as painful but more as a light pressure, of which she has never had previously. She denies fever, chills , SOB, cough, diaphoresis, abdominal pain, nausea, vomiting, diarrhea, dysuria, hematuria, and recent falls/trauma. Due to the discomfort she took 324 mg of PO aspirin which quickly relieved her pain. She states that she contemplated not coming to the ED due to the discomfort being minor and resolving but she wanted to be safe. She denies a history of previous cardiac disease and has not had to see a fashion designer in the past. Per chart review, she had a dobutamine stress echo back in 2011 which was found to be normal. She is a very active person and does lots of housework throughout the day, she also climbs multiple sets of steps daily. When asked, she denies chest discomfort/pain or SOB with her daily activity or climbing stairs. I spoke to she and her daughter regarding code status. She would like to be a full code and her daughter would make decisions for her if she could not make them herself. When asked after I examined her, she does not recall being told she has a heart murmur in the past. Please refer to Dr. Mata's attestation for any changes to the treatment plan Admission Exam Per Admitting Provider Physical Exam: General:In no acute distress, stated age, well-nourished, good hygiene HEENT:Normocephalic, atraumatic, no scleral icterus, pupils around round, symmetrical, and reactive to light, moist mucus membranes, trachea midline, no thyromegaly Chest/Pulm:No respiratory distress, symmetrical chest expansion, clear breath sounds throughout Cardiac:No reproducible chest pain upon palpation of the chest, RRR, 3/6 systolicmurmur noted Abdomen:Negative for ascites and bruising, normoactive bowel sounds, soft, non-tender to palpation throughout Musculoskeletal:Symmetrical and without signs of acute trauma, upper and lower extremities with full ROM, no atrophy, spasticity, or flaccidity Extremities:Radial, dorsalis pedis, and posterior tibial pulses are intact and symmetrical, no edema noted in the BL LE's Skin:Warm, dry, no rashes , lesions, or scars noted Neuro:Alert and oriented to person, place, month, year, and president, no focal defects, CN II-XII tested and intact, finger to nose test negative, no tremors noted Psych:No acute distress, calm and cooperative during the exam Principal Diagnosis Chest Pain Discharge Exam General: WD/WN elderly female walking around in her room, NAD, anxious to be discharged if possible HEENT: head normocephalic, atraumatic, mmm, trachea midline Resp: CTAB, no w/c/r, on room air CV: regular rate/rhythm, +systolic murmur, no pitting edema/calf tenderness GI: +BS, soft/NT : no saul MSK/Neuro: moves all extremities, no focal deficits, no slurred speech/facial droop Skin: no obvious lesions/rashes, well perfused Discharge Data Allergies Allergy/AdvReac Type Severity Reaction Status Date / Time No Known Allergies Allergy Verified 03/11/22 13:06 Consultations 04/02/22 11:43 ED Decision to Admit Stat 04/03/22 08:08 Consult Cardiology Routine Ordered Studies Chest X-Ray 04/02/22 07:17 XR chest 1V portable CLINICAL HISTORY: Atypical chest pain. COMPARISON STUDY: Chest CT January 21, 2022. FINDINGS: [Lumbar spine scoliosis is incidentally noted. Skin folds project over the right chest. Lung volumes are normal. Lungs are clear. There is no pneumothorax or pleural effusion. Cardiac size is normal. Mediastinal contours are normal. There is no evidence for pulmonary edema. IMPRESSION: No acute cardiopulmonary findings. ACT 112: Negative or not required by law. Electronically signed by: Gilmar Avalos M.D. 04/02/2022 7:39 AM 04/02/2022 ECHOCARDIOGRAM Left ventricular systolic function is normal There is moderate concentric left ventricular hypertrophy Aortic valve sclerosis mild, without significant aortic valvular stenosis There is moderate mitral annular calcification There is mild mitral regurgitation There is mild mitral stenosis Right ventricular systolic pressure is normal Hospital Course (1) Chest pain: Patient states she woke from sleep around 415/430am and CP in bed w/ radiation to arm. Laid in bed until 5, decided to take 324mg ASA and come to ER despite symptoms improved w/ ASA Of note, patient does have brother in [place] not doing well, not able to tolerate HD and made hospice (She found this out night before she woke up w/ pain/came in) Trop on admit 11--> 17.9 --> 39.5 --> 42.3 EKG showing a possible bifascicular block with age undetermined possible lateral infarct, upon evaluation of her last ECG on 10/22/[address] patient had similar ST segment depressions in the lateral leads Given IVF, repeated troponin with AM labs given trend up --> down to 28 ECHO obtained w/o WMA, +faint murmur on exam but no significant valvular heart disease or wall motion abnormality DENIED any further chest pain, however given symptoms of chest pain at rest did ask cardiology to see patient, Dr Molina. They discussed possible cardiac catheterization vs medical management --> patient opted for medical management and ASA 81mg/Plavix 75mg recommended daily -- rx sent Dr Molina arranging outpatient follow up Lipid panel w/ elevated cholesterol (better than prior value) -- not on statin . discussed starting with patient however she states Dr Newby aware and no need for tx w/ such elevated HDL cholesterol. Recommended continued f/u discussions, cath if she has any continued symptoms/changes her mind (2) Restless leg syndrome: Continued ropinirole (3) Spinal stenosis, lumbar region with neurogenic claudication: Continued prn tramadol follows w/ pain clinic (4) Hyperlipidemia: Not currently on a statin, was on alpha lipoic acid prior to running out and not having it refilled yet Cholesterol level 217, LDL 105, however HDL 95 as stated above, DR Newby monitoring Given above, would have continued discussions and rec at least low dose statin in follow up (5) GERD (gastroesophageal reflux disease): PPI (6) Hypothyroidism: Listed hx, not on medications -- TSH checked and slightly low T4 and free T3 wnl Recommend repeating outpatient to ensure normalized (7) Vitamin D deficiency: Continued vitamin D (8) Hypertension: BP stable, continued home amlodipine-valsartan Total Time Total Time Spent Total Time Spent (In Minutes): 60 Discharge Plan Discharge Items Patient Disposition: Home - Self-Care Reason For Visit: CHEST PAIN Discharge Diagnosis: Chest Pain Condition on Discharge: Good Goals: You have been hospitalized for an acute medical problem. During your stay at [facility], we have made an effort to correct the problem that brought you to the hospital while keeping you as comfortable as possible. Medications were used to bring your condition under control and your discharge instructions will include directions for any medications you should take after leaving the hospital. Please make sure you see your Primary Care Provider as part of your follow up plan. Activity: Resume your previous activity Non-emergency contact: Primary Care Provider and Computer Applications Engineer Call non-emergency contact if: you have any medication questions, your symptoms worsen and your pain is not controlled Follow-up/Referrals: Tomi Newby MD [Primary Care Provider] - 04/14/22 3:45 pm (Please arrive 15 minutes prior to appointment time.) Andrew Molina MD [Physician] - (as needed) Diet: Heart Healthy Addtl Attending Provider Instructions: You have been hospitalized for chest pain. Your cardiac enzymes were checked and minimally elevated, but trended down on repeat. EKG was without significant change from prior. An ultrasound of your heart was completed due to murmur, which did not show any significant valvular heart disease. Your cholesterol levels were checked and as discussed you can follow up with Dr Newby for further discussion given your HDL is 95 (good cholesterol). Your symptoms were concerning for coronary artery disease given that they were relieved with aspirin, and I asked Dr Molina to evaluate you from cardiology. Discussion was had regarding medical management vs pursing a cardiac catheterization, and you opted for medical management. Dr Molina has provided you his card if you would like to follow up with him at discharge, vs having your primary care provider refer for a catheterization in the future if you continue with any symptoms or change your mind. For this reason, we are recommending you continue a baby aspirin 81mg at discharge along with plavix 75mg as antiplatelet therapy. You should follow up with primary care in the next 7-10 days to monitor your progress. Please return to the nearest emergency department with any worsening pain, bleeding, shortness of breath, or for any other symptoms concerning for you. It has been a pleasure being a part of the medical team providing for you while you have been in the hospital. Take care! Pending Studies at Discharge: No Stand-Alone Forms: [facility], Smoking Cessation Medications and DC Order Prescriptions: New clopidogrel 75 mg Tablet 75 mg PO QAM Qty: 30 1RF aspirin 81 mg Tablet,Delayed Release (Dr/Ec) 81 mg PO QAM Qty: 30 1RF Continued tramadol 50 mg tablet 50 mg PO Q8H PRN (Reason: pain) Qty: 90 0RF cholecalciferol (vitamin D3) 2,000 unit capsule 2,000 units PO QAM magnesium oxide 400 mg capsule 400 mg PO QPM biotin 1 mg capsule 1 mg PO QAM amlodipine-valsartan 5-160 mg tablet 1 tab PO DAILY Qty: 90 3RF ropinirole 0.25 mg tablet 0.25 mg PO HS PRN (Reason: parkinsonism) Qty: 90 3RF cinnamon bark [Cinnamon] 500 mg Capsule 2,000 mg PO DAILY coenzyme Q10 [Co Q-10] 200 mg capsule 200 mg PO DAILY alpha lipoic acid 200 mg Capsule 1 cap PO DAILY oxycodone 5 mg Tablet 5 mg PO DIRECTED PRN (Reason: Pain) Discharge Orders: Discharge Order (Routine); Ordered 04/03/22 Ordered By: Bruna Gannon Admission Data Admit Date/Time: 04/02/22 12:03 Attending Provider: Sharon Stephens Admit Provider: He Mata Primary Care Provider: Tomi Newby Other Providers: He Mata ; Andrew Molina Supervising Physician Co-Signing Physician Notes PA Supervision Note: I personally saw and examined the patient. I verified all sagastume points and agree with HINA Gannon with the following exceptions and/or additions: Summary of present stay: 86-year-old female with a history of CKD stage III, GERD, hyperlipidemia, hypothyroidism, spinal stenosis admitted for evaluation of chest pain that radiated to the left arm. Troponin trend [id number]. EKG without ST or T wave changes suggestive of ACS. Echocardiogram did not show decreased LVEF, no wall motion abnormalities. Patient had resolution of pain overnight. Cardiology consulted and appreciate recommendations: Consideration was made for catheterization versus medical therapy, patient elected for medical therapy. Dual antiplatelet therapy will be as stated at this time for discharge, otherwise no changes in medications, follow-up with cardiology in 2 to 4 weeks. Hemoglobin on admission noted to be 11.2, patient's baseline range is 1112. Cholesterol 217, LDL 105: Patient elects to follow-up with PCP regarding this rather than initiating statin in house. TSH on admission noted to be low at 0.240, however free T4 and free T3 were normal. No other medication changes were made for other chronic medical complaints. Physical exam: Vitals reviewed Gen: Alert and oriented, NAD HEENT: anicteric sclerae, EOMI CV: RRR no mgr nl S1S2 Pulm: CTAB no wcr Abd: +BS soft NT ND no masses Ext: no edema, 2+ DP pulses Skin: no rashes, warm/dry Neuro: No focal neurologic deficits Labs, Rads, and ECG reviewed Coding Level of Care Code 16856 OBS Care - Discharge Diagnoses Chest pain R07.9 Restless leg syndrome G25.81 Spinal stenosis, lumbar region with neurogenic claudication M48.062 Hyperlipidemia E78.5 GERD (gastroesophageal reflux disease) K21.9 Hypothyroidism E03.9 Vitamin D deficiency E55.9 Hypertension I10 Hypertension type: essential hypertension
[2022-04-03] MEDS ORDERED: ASPIRIN 81 MG ECTAB PO SCH (13:30)
[2022-04-03] MEDS ORDERED: CLOPIDOGREL BISULFATE 75 MG TAB PO SCH (13:30)
--- NOTE | 2022-04-03 17:27 | Cardiology Consultation ---
Date of Consultation April 03, 2022 Assessment & Plan (1) Chest pain: (2) Elevated troponin: (3) Mitral valve disease: (4) Left ventricular hypertrophy: (5) Bifascicular block: Plan 1. Chest pain: Her symptoms are concerning for acute coronary syndrome. She had a very mild elevation in her biomarkers. Her episode of discomfort was relatively brief in duration. No acute EKG changes, but her symptoms have resolved by the time of evaluation in the emergency room. She is certainly in a demographic was likely to have coronary disease. Generally speaking we will perform some coronary angiography in this circumstance given the objective findings and symptoms. I did describe the option of coronary angiography with the patient. I did describe the alternative which would be dual anti-platelet therapy for a very small elevation in her biomarkers. I explained that this could represent acute coronary syndrome and an early invasive strategy is generally superior to medical therapy. The risk of medical therapy would be recurrent and worsening symptoms. She has some reservation about invasive procedures and at this point has an interest in getting to [place] to see her brother before he dies. As result she has elected to undergo dual anti-platelet therapy as an alternative to an invasive strategy. We discussed symptoms of which to be aware in the need for urgent medical evaluation should her arm and chest pain recur. 2. Mitral valve disease: An element of mitral regurgitation and mitral stenosis. Not severe. This can be followed over time. Not likely to be a significant clinical concern in the course of her lifetime. 3. bifascicular block: No symptoms suggestive of more significant conduction disease. No dizziness or lightheadedness. Normal heart rates. At this point would seem reasonable to start dual anti-platelet therapy with 81 mg of aspirin 75 mg of Plavix daily. She should follow up with me in the clinic in the next 2-4 weeks for re-evaluation. History of Present Illness Reason for Consultation: Chest pain Requesting Physician: Michel Attending Physician: Sharon Stephens, History of Present Illness the patient is an 78-year-old woman without a known history of cardiac disease who awoke quite early yesterday morning with some symptoms of left arm discomfort. He states she occasionally has some left arm discomfort but this was somewhat more significant and lasted longer than usual. He was accompanied by a sense of mild chest pressure as well. The symptoms lasted approximately 30 minutes according to the patient. She did take an aspirin at home and the symptoms generally resolve. However, based on the prolonged and unusual nature of the symptoms she elected to come to the hospital for evaluation. She is not describe any associated shortness of breath. There was no dizziness or lightheadedness. No diaphoresis, nausea or abdominal complaints. She cannot recall having similar symptoms in the past. A general she is an active individual was able to perform routine housework and walking without limitation. He did not report any exertional chest pain or breathing difficulty. No recent sense of palpitations or lightheadedness. Otherwise she has been feeling well w ith the exception of some stress associated with the impending of her brother who lives in [place]. Allergies Allergy/AdvReac Type Severity Reaction Status Date / Time No Known Allergies Allergy Verified 03/11/22 13:06 Home Medications Medication Instructions Recorded Confirmed Type biotin 1 mg capsule 1 mg PO QAM 01/18/18 04/02/22 History cholecalciferol (vitamin D3) 50 2,000 units PO QAM 01/18/18 04/02/22 History mcg (2,000 unit) capsule magnesium oxide 400 mg PO QPM 01/18/18 04/02/22 History cinnamon bark 500 mg capsule 2,000 mg PO DAILY 03/13/18 04/02/22 History (Cinnamon) alpha lipoic acid 200 mg capsule 1 cap PO DAILY 05/12/18 04/02/22 History coenzyme Q10 200 mg capsule (Co 200 mg PO DAILY 10/13/18 04/02/22 History Q-10) tramadol 50 mg tablet 50 mg PO Q8H PRN pain #90 tabs 10/02/20 04/02/22 Rx oxycodone 5 mg tablet 5 mg PO DIRECTED PRN Pain 10/22/21 04/02/22 History amlodipine 5 mg-valsartan 160 mg 1 tab PO DAILY #90 tabs 02/11/22 04/02/22 Rx tablet ropinirole 0.25 mg tablet 0.25 mg PO HS PRN parkinsonism #90 02/11/22 04/02/22 Rx tabs aspirin 81 mg tablet,delayed 81 mg PO QAM #30 tabs 04/03/22 Rx release clopidogrel 75 mg tablet 75 mg PO QAM #30 tabs 04/03/22 Rx Patient History Medical History Degenerative disc disease GERD (gastroesophageal reflux disease) Hx of skin cancer, basal cell Hyperlipidemia Hypertension Hypothyroidism Lumbar radiculitis Osteoarthritis of knees, bilateral Osteoporosis Restless leg syndrome Scoliosis Spinal stenosis, 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 Urinary incontinence Vitamin D deficiency Surgical History H/O left cataract extraction 03/14/14/ H/O oral surgery H/O right cataract extraction 02/28/14 History of bunionectomy RIGHT History of colonoscopy History of herniorrhaphy INGUINAL HERNIA Family History Mother Family history of diabetes mellitus Daughter Family history of diabetes mellitus Brother Family history of diabetes mellitus Family/Other Family history of diabetes mellitus Father Lung cancer Denies family history of Ovarian cancer Prostate cancer Alzheimer disease Heart disease Myocardial infarction Breast cancer Colorectal cancer Hypertension Stroke Social History Smoking Status: Never smoker Age Quit Using Tobacco: 22; Second Hand Exposure: No; Hx Alcohol Use: No Hx Substance Use: No Preferred Language: Japanese Communication Ability: Effective Visual Impairment: Limited Hearing Ability: Hard of Hearing Dispatcher Relay Required: No Beliefs That Will Affect Care: None marital status: / Current Living Situation: Family Current Living Situation Comment: patient lives with daughter Yesenia current occupational status: retired How many Children do You have: 1 Feels Safe at Home: Yes Childhood Exposure to Second-Hand Smoke: Yes Dental Care, Regularly: No Physical Activity Frequency: 1-2 Times per Week Seatbelt Use: always Sunscreen Use: Yes Assistive Devices: None Review of Systems Review of Systems: Per HPI. No recent fevers or chills. No orthopnea. No sleep disturbance. No lower extremity edema. Physical Exam Physical Exam: She is alert and oriented x3. Mood affect appear normal. She answered all questions appropriately. HEENT: Sclerae are anicteric. Pupils are equal and reactive to light and accommodation. Extraocular movements were intact. Neuro: Cranial nerves intact Neck: Examination of the submandibular region did not reveal any significant lymphadenopathy. Carotids are palpable bilaterally and free of bruits on auscultation. There was no evidence of jugular venous distention. The thyroid was not enlarged. Lungs: Lungs are clear to auscultation bilaterally. There are no rales wheezes or rhonchi. She has normal respiratory effort without use of accessory muscles. There is normal pulmonary excursion. Cardiac: The rhythm was regular. S1 and S2 were normal. Soft holosystolic murmur. The PMI was not markedly displaced on palpation. Abdomen: The abdomen was soft and nontender. Extremities: Patient has bilateral radial pulses that are equal in intensity. There is no evidence cyanosis or clubbing. There was no evidence of significant peripheral edema bilaterally. Skin: There are no rashes noted on examination today. Results & Data ([facility]) Vital Signs (Past 12 Hours) Vital Signs Pulse Resp BP Pulse Ox 04/03/22 06:09 72 20 136/73 98 Laboratory Results Abnormal Lab Results 04/02/22 04/02/22 04/03/22 15:41 19:58 04:31 WBC 5.49 RBC 3.46 L Hgb 11.2 L Hct 33.2 L MCV 96.0 MCH 32.4 MCHC 33.7 RDW Std Deviation 45.1 RDW Coeff of Slime 12.8 Plt Count 198 MPV 9.1 L Sodium Potassium Chloride Carbon Dioxide Anion Gap BUN Creatinine Est Cr Clr Drug Dosing Est GFR ( Amer) Est GFR (Non-Af Amer) BUN/Creatinine Ratio Glucose Estimat Average Glucose Hemoglobin A1c Calcium Magnesium Troponin I High Sens 42.3 H Triglycerides Cholesterol LDL Cholesterol, Calc VLDL Cholesterol, Calc HDL Cholesterol Cholesterol/HDL Ratio Free T3 3.14 04/03/22 04/03/22 04/03/22 04:31 04:31 04:31 WBC RBC Hgb Hct MCV MCH MCHC RDW Std Deviation RDW Coeff of Slime Plt Count MPV Sodium 142 Potassium 4.1 Chloride 114 H Carbon Dioxide 23 Anion Gap 5 BUN 20 Creatinine 1.18 Est Cr Clr Drug Dosing 20.6 Est GFR ( Amer) 47.7 Est GFR (Non-Af Amer) 41.1 BUN/Creatinine Ratio 16.9 Glucose 106 H Estimat Average Glucose 111 Hemoglobin A1c 5.5 Calcium 9.3 Magnesium 1.8 Troponin I High Sens 28.0 H D Triglycerides 84 Cholesterol 217 H LDL Cholesterol, Calc 105 VLDL Cholesterol, Calc 17 HDL Cholesterol 95 Cholesterol/HDL Ratio 2.3 Free T3 Diagnostic Findings chest x-ray obtained the time admission did not reveal any acute cardiopulmonary process. Echocardiogram obtained 04/02/2022: Normal LV systolic function with ejection fraction of 55-60%. Moderate LVH. The aortic valve sclerosis without stenosis. Moderate mitral annular calcification. Mild mitral regurgitation and mild mitral stenosis. ECG Additional Comments: EKG obtained the time admission revealed normal sinus rhythm with right bundle-branch block and left anterior fascicular block. No acute ST or T-wave changes PG Care Time/CCT Total # of Minutes Spent Total Time Spent with Patient: Total time spent is greater than 50% in coordination of care (as documented) at patient's floor/unit and/or counseling patient: Coding Level of Care Code INT OBSERVATION CARE 70M LVL 3 Diagnoses Chest pain R07.9 Chest pain type: unspecified Elevated troponin R77.8 Mitral valve disease I05.9 Left ventricular hypertrophy I51.7 Bifascicular block I45.2 (1) Chest pain Chest pain type: unspecified Qualified Code(s): R07.9 - Chest pain, unspecified
== END 2022-04-03 15:30 | disposition home or self-care (01) ==
LOC: ED 06:53 → EDINP 06:53 → SUATTDRO 12:03 → EDINP 17:32